=== PATIENT | male | born 1985 | race Asian ===

== ENCOUNTER → 2016-11-19 | Outpatient (CLI) | payer BC ==
--- NOTE | 2016-11-19 10:05 | DIAGNOSTIC IMAGING REPORT ---
LUMBAR SPINE MIN 4 VIEWS CLINICAL HISTORY: 30 years-old Male presenting with LOW BACK PAIN. TECHNIQUE: Frontal, bilateral oblique, lateral, and coned in lateral views lumbar spine were obtained. COMPARISON: None. FINDINGS: Minimal levocurvature of the lumbar spine centered at L3-4. Normal lumbar lordosis. Vertebral bodies maintain normal height and alignment. Mild intervertebral disc height loss at L5-S1. No radiographic evidence of acute fracture or subluxation. No significant osseous neural foraminal narrowing is apparent. Moderate stool burden. IMPRESSION: Mild intervertebral disc height loss at L5-S1. Electronically signed by: Winston Lewis M.D. 11/19/2016 10:03 AM Dictated Date/Time: 11/19/2016 10:02 AM
--- NOTE | 2016-11-19 10:12 | DIAGNOSTIC IMAGING REPORT ---
PELVIS 1 OR 2 VIEWS HISTORY: 30 years-old Male LOW BACK PAIN acute right-sided low back pain with history of injury 3 months prior. 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 No acute fracture, dislocation or significant degenerative changes are identified. Soft tissues are unremarkable. IMPRESSION: 1. No acute fracture or dislocation. 2. 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 The above report was generated using voice recognition software. It may contain grammatical, syntax or spelling errors. Electronically signed by: Reuben Lakhani M.D. 11/19/2016 10:11 AM Dictated Date/Time: 11/19/2016 10:09 AM
== END | disposition home or self-care (01) ==
LOC: C.RDSM 13:26
PROVIDERS: ATTEND Family Medicine
DX: M54.5 Low back pain (principal); M51.87 Other intervertebral disc disorders, lumbosacral region; Z87.828 Personal history of other (healed) physical injury and trauma